=== PATIENT | male | born 1985 | race African-American/Black ===

== ENCOUNTER 2018-01-12 14:07 | Inpatient (IN) | payer OTHER ==
[2018-01-12 14:28] VITALS: BMI 18.4
[2018-01-12] MEDS ORDERED: PNEUMOC 13-VAL CONJ-DIP CRM/PF 0.5 ML DISP.SYRIN IM ONE (16:29)
--- NOTE | 2018-01-12 17:05 | HP ---
"CIWA Score Nausea/Vomitin-Mild Nausea/No Vomiting Muscle Tremors: 4-Moderate,w/Arms Extend Anxiety: 3 Agitation: 2 Paroxysmal Sweats: 1-Minimal Palms Moist Orientation: 0-Oriented Tacttile Disturbances: 0-None Auditory Disturbances: 0-None Visual Disturbances: 0-None Headache: 2-Mild CIWA-Ar Total Score: 13 - Admission Criteria OASAS Guidelines: Admission for Medically Managed Detox: Requires at least one of the followin. CIWA greater than 12 2. Seizures within the past 24 hours 3. Delirium tremens within the past 24 hours 4. Hallucinations within the past 24 hours 5. Acute intervention needed for co occurring medical disorder 6. Acute intervention needed for co occurring psychiatric disorder 7. Severe withdrawal that cannot be handled at a lower level of care (continued vomiting, continued diarrhea, abnormal vital signs) requiring intravenous medication and/or fluids 8. Patient presents the following: CIWA greater than 12 Admission Criteria Met: Admission criteria met Admission ROS [facility] Chief Complaint: Here for alcohol withdrawal. Allergies/Adverse Reactions: Allergies Allergy/AdvReac Type Severity Reaction Status Date / Time No Known Allergies Allergy Verified 01/12/18 16:30 History of Present Illness: Here for alcohol detox. Alcohol use began at age 15. Denies hx seizures. States no blackouts in years. Marijuana use began at age 12. Nicotine use began at age 13. PCP use began at age 20. States last use 1 week ago. Longest length of sobriety 1 month. Has received Naltrexone, while at [place], and is interested in restarting. Denies significant PMH. Search Terms: [employer], 1985 Search Date: 01/12/2018 05:03:22 PM The Drug Utilization Report below displays all of the controlled substance prescriptions, if any, that your patient has filled in the last twelve months. The information displayed on this report is compiled from pharmacy submissions to the Department, and accurately reflects the information as submitted by the pharmacies. This report was requested by: Blanca Quinteros | Reference #: [id number] There are no results for the search terms that you entered. Exam Limitations: No Limitations - Ebola screening Have you traveled outside of the country in the last 21 days: No Have you had contact with anyone from an Ebola affected area: No Have you been sick,other than usual withdrawal symptoms: No Do you have a fever: No - Review of Systems Constitutional: Chills, Changes in sleep (Difficulty falling asleep) EENT: reports: Blurred Vision (States needs glasses), Dental Problems (Missing a few teeth and has caries. Has a dental appt 01/16. Chews and swallows ok) Respiratory: reports: No Symptoms reported Cardiac: reports: No Symptoms Reported GI: reports: Nausea (r/t withdrawal) : reports: No Symptoms Reported Musculoskeletal: reports: No Symptoms Reported Integumentary: reports: Other (Cut (L) cheek x 1 month ago. Rcv'd stitches but scratched out) Neuro: reports: Headache (r/t withdrawal), Tremors Endocrine: reports: No Symptoms Reported Hematology: reports: No Symptoms Reported Psychiatric: reports: Orientated x3, Agitated, Anxious, Depressed (Denies thoughts of harming self or others) Patient History - Patient Medical History Hx Anemia: No Hx Asthma: No Hx Chronic Obstructive Pulmonary Disease (COPD): No Hx Cancer: No Hx Cardiac Disorders: No Hx Congestive Heart Failure: No Hx Hypertension: No Hx Hypercholesterolemia: No Hx Pacemaker: No HX Cerebrovascular Accident: No Hx Seizures: No Hx Diabetes: No Hx Gastrointestinal Disorders: No Hx Genitourinary Disorders: No Hx Sexually Transmitted Disorders: No Hx Renal Disease (ESRD): No Hx Thyroid Disease: No Hx Human Immunodeficiency Virus (HIV): No (Negative 2018) Hx Hepatitis C: No Hx Depression: Yes (Denies thoughts of harming self or others) Hx Suicide Attempt: No Hx Schizophrenia: Yes - Patient Surgical History Past Surgical History: No Hx Neurologic Surgery: No Hx Cataract Extraction: No Hx Cardiac Surgery: No Hx Lung Surgery: No Hx Breast Surgery: No Hx Breast Biopsy: No Hx Abdominal Surgery: No Hx Appendectomy: No Hx Cholecystectomy: No Hx Genitourinary Surgery: No Hx Section: No Hx Orthopedic Surgery: Yes (Hx Scoliosis - metal caden in back 01/2002) Anesthesia Reaction: Yes - PPD History Previous Implant?: Yes Documented Results: Negative w/o proof Implanted On Prior R Admission?: No PPD to be Administered?: Yes - Reproductive History Patient is a Female of Child Bearing Age (11 -55 yrs old): No - Smoking Cessation Smoking history: Current every day smoker Have you smoked in the past 12 months: Yes Aproximately how many cigarettes per day: 20 Cigars Per Day: 0 Hx Chewing Tobacco Use: Yes (Stopped at age 23) Initiated information on smoking cessation: Yes 'Breaking Loose' booklet given: 01/12/18 - Substance & Tx. History Hx Alcohol Use: Yes Hx Substance Use: Yes Substance Use Type: Alcohol, Marijuana, Tranquilizers (PCP) Hx Substance Use Treatment: Yes (detox, ) - Substances Abused Alcohol Route: Oral Frequency: Daily Amount used: 1 LITER, VODKA,ENG Age of first use: 15 Date of Last Use: 01/12/18 Marijuana/Hashish Route: Smoking Frequency: Daily Amount used: 2 BLUNTS Age of first use: 12 Date of Last Use: 01/11/18 Admission Physical Exam S - Vital Signs Vital Signs: Vital Signs - 24 hr 01/12/18 01/12/18 14:25 16:22 Temperature 98.2 F 98.2 F Pulse Rate 94 H 94 H Respiratory 18 18 Rate Blood Pressure 144/89 144/89 - Physical General Appearance: Yes: Mild Distress, Tremorous, Sweating, Anxious HEENTM: Yes: Hearing grossly Normal, Normocephalic, GLENYS, Pharynx Normal, Other (Jerking movements of eyes on lateral gaze) Respiratory: Yes: Lungs Clear, Normal Breath Sounds, No Respiratory Distress Neck: Yes: No masses,lesions,Nodules, Supple Breast: Yes: Breast Exam Deferred Cardiology: Yes: Regular Rhythm, S1, S2, Tachycardia (HR: 102) Abdominal: Yes: Flat, Soft, Increased Bowel Sounds, Tenderness (Mid quad tenderness upon palpation. No guarding. No rebound tenderness.) Genitourinary: Yes: Within Normal Limits Back: Yes: Normal Inspection, Surgical Scar (Throracic) Musculoskeletal: Yes: full range of Motion (Except for middle finger of (L) hand.), Gait Steady Extremities: Yes: Normal Capillary Refill, Non-Tender, Tremors (Upon elevation of arms) Neurological: Yes: mail clerks supervisor II-XII NML intact (Jerking movements of eyes on lateral gaze), Motor Strength 5/5, Other Integumentary: Yes: Normal Color, Dry, Warm, Other (Healing non-approximated laceration w/ red granulation tissue at (L) cheek w/o drainiage.) Lymphatic: Yes: Within Normal Limits - Diagnostic (1) Cannabis abuse, uncomplicated Current Visit: Yes Status: Chronic (2) Alcohol dependence with uncomplicated withdrawal Current Visit: Yes Status: Acute (3) Superficial laceration of face Current Visit: Yes Status: Chronic Comment: (L) cheek area x 1 month. (4) Nystagmus Current Visit: Yes Status: Acute (5) History of open reduction and internal fixation (ORIF) procedure Current Visit: Yes Status: Chronic Comment: Spine for Scoliosis (6) Nicotine dependence, uncomplicated Current Visit: Yes Status: Chronic Qualifiers: Nicotine product type: cigarettes Qualified Code(s): F17.210 - Nicotine dependence, cigarettes, uncomplicated Cleared for Admission [facility] - Detox or Rehab [facility] Level of Care: Medically Managed Detox Regimen/Protocol: Librium [facility] Breath Alcohol Content Breath Alcohol Content: 0.024 Urine Drug Screen - Results Drug Screen Negative: No Urine Drug Screen Results: THC-Marijuana"
[2018-01-12] MEDS ORDERED: IBUPROFEN 400 MG TABLET (FP) PO PRN (18:56)
[2018-01-12] MEDS ORDERED: MENTHOL/PHENOL 1 EACH UD MM PRN (18:56)
[2018-01-12] MEDS ORDERED: chlordiazePOXIDE HCL 25 MG CAPSULE PO ONE (18:56)
[2018-01-12] MEDS ORDERED: MAG HYDROX/AL HYDROX/SIMETH 30 ML UNIT-DOSE CUP PO PRN (18:56)
[2018-01-12] MEDS ORDERED: ACETAMINOPHEN 325 MG TABLET (FP) PO PRN (18:56)
[2018-01-12] MEDS ORDERED: MAGNESIUM CITRATE 300 ML BOTTLE PO PRN (18:56)
[2018-01-12] MEDS ORDERED: LOPERAMIDE HCL 2 MG CAPSULE PO PRN (18:56)
[2018-01-12] MEDS ORDERED: chlordiazePOXIDE HCL 25 MG CAPSULE PO PRN (18:56)
[2018-01-12] MEDS ORDERED: MAGNESIUM HYDROX 2400MG/30ML ORAL SUSPENSION 30 ML CUP PO PRN (18:56)
[2018-01-12] MEDS ORDERED: MELATONIN 5 MG TABLETS PO PRN (22:00)
[2018-01-12] MEDS: BACITRACIN 0.9 GM PACKET TP SCH (22:18)
[2018-01-12] MEDS: THIAMINE HCL 100 MG TABLET (FP) PO SCH (22:18)
[2018-01-12] MEDS: chlordiazePOXIDE HCL 25 MG CAPSULE PO SCH (22:19)
[2018-01-12] MEDS: NICOTINE POLACRILEX 2 MG GUM BUC PRN (22:22)
[2018-01-13 03:27] LABS: URINE APPEARANCE CLEAR; URINE BILIRUBIN NEGATIVE (<2.0 mg/dL); URINE COLOR COLORLESS; URINE GLUCOSE (UA) NEGATIVE (NEGATIVE); URINE KETONE NEGATIVE (NEGATIVE); URINE LEUK ESTERASE NEGATIVE (NEGATIVE); URINE NITRITE NEGATIVE (NEGATIVE); URINE PROTEIN NEGATIVE (NEGATIVE); URINE UROBILINOGEN NEGATIVE mg/dL (0.2-1.0)
[2018-01-13] MEDS: chlordiazePOXIDE HCL 25 MG CAPSULE PO SCH ×4 (05:40→22:18)
[2018-01-13 09:47] LABS: ALBUMIN 3.3 g/dl (3.4-5.0); ALK PHOS 121 U/L (45-117); ANION GAP 7 MMOL/L (8-16); BILIRUBIN,TOTAL 0.6 mg/dL (0.2-1); BLOOD UREA NITROGEN 9 mg/dL (7-18); CALCIUM 8.8 mg/dL (8.5-10.1); CHLORIDE 106 mmol/L (98-107); CO2 29 mmol/L (21-32); CREATININE 0.5 mg/dL (0.55-1.3); GLUCOSE,RANDOM 110 mg/dL (74-106); POTASSIUM 3.8 mmol/L (3.5-5.1); SGOT/AST 17 U/L (15-37); SGPT/ALT 39 U/L (13-61); SODIUM 141 mmol/L (136-145); TOT PROT 6.3 g/dl (6.4-8.2)
[2018-01-13 09:54] LABS: HEMOGLOBIN 13.4 GM/dL (11.7-16.9); MCH 28.3 pg (25.7-33.7); MCHC 32.7 g/dl (32.0-35.9); MEAN CELL VOLUME 86.6 fl (80-96); MEAN PLT VOLUME 8.5 fl (7.5-11.1); PLATELET COUNT 228 K/MM3 (134-434); RBC 4.73 M/mm3 (4.00-5.60); RDW 14.5 % (11.9-15.9); WHITE BLOOD COUNT 4.9 K/mm3 (4.0-10.0)
[2018-01-13] MEDS: BACITRACIN 0.9 GM PACKET TP SCH ×2 (10:02→22:18)
[2018-01-13] MEDS: PRENATAL VITAMINS W/ FOLIC ACID TABLET (FP) PO SCH (10:02)
[2018-01-13] MEDS: NICOTINE 21 MG/24 HOURS TOPICAL PATCH TD SCH (10:05)
[2018-01-13] MEDS: NICOTINE POLACRILEX 2 MG GUM BUC PRN ×3 (10:05→22:19)
--- NOTE | 2018-01-13 11:14 | CONSULT ---
[facility] Psychiatric Consult - Data Date of interview: 01/13/18 Admission source: [facility] Identifying data: Patient is a 32 year old single male, without children, unemployed, homeless, and is supported by [facility]. This is patient's first admission to detox at [facility]. Patient admitted to for alcohol and marijuana dependence. Substance Abuse History: Smoking Cessation. Smoking history: Current every day smoker. Have you smoked in the past 12 months: Yes. Aproximately how many cigarettes per day: 20. Cigars Per Day: 0. Hx Chewing Tobacco Use: Yes ( Stopped at age 23). Initiated information on smoking cessation: Yes. ' Breaking Loose' booklet given: 01/12/18. - Substance & Tx. History. Hx Alcohol Use: Yes. Hx Substance Use: Yes. Substance Use Type: Alcohol, Marijuana, Tranquilizers (PCP). Hx Substance Use Treatment: Yes (detox, ). - Substances Abused. Alcohol. Route: Oral. Frequency: Daily. Amount used: 1 LITER, VODKA,ENG. Age of first use: 15. Date of Last Use: 01/12/18. Marijuana/Hashish. Route: Smoking. Frequency: Daily. Amount used: 2 BLUNTS. Age of first use: 12. Date of Last Use: 01/11/18 Medical History: Hx Scoliosis - metal caden in back 01/2002 Psychiatric History: Patient denies h/o psychiatric hospitalizations but does report one admission to the psychiatric emergency room (2014) in [facility] after stating he wanted to hurt himself while he was intoxicated. He was discharged the following day. He reports being diagnosed wit ADD and schizophrenia as a teenager. States he was prescribed ritalin and risperdal. He denies h/o outpatient care as an adult. No psychosis noted. Patient denies h/o suicide attempt. Physical/Sexual Abuse/Trauma History: denies. Mental Status Exam - Mental Status Exam Alert and Oriented to: Time, Place, Person Cognitive Function: Good Patient Appearance: Well Groomed Mood: Euthymic Affect: Mood Congruent Patient Behavior: Appropriate, Cooperative Speech Pattern: Appropriate Voice Loudness: Normal Thought Process: Intact, Goal Oriented Thought Disorder: Not Present Hallucinations: Denies Suicidal Ideation: Denies Homicidal Ideation: Denies Insight/Judgement: Poor Sleep: Poorly Appetite: Fair Muscle strength/Tone: Normal Gait/Station: Normal Psychiatric Findings - Problem List ([place] 1, 2,3) (1) ADD (attention deficit disorder) Current Visit: No Status: Chronic (2) Alcohol dependence with uncomplicated withdrawal Current Visit: Yes Status: Acute (3) Cannabis abuse, uncomplicated Current Visit: Yes Status: Chronic - Initial Treatment Plan Initial Treatment Plan: Psychoeducation provided. Detoxification in progress. Observation.
--- NOTE | 2018-01-13 11:41 | PN ---
S CIWA - CIWA Score Nausea/Vomitin-Mild Nausea/No Vomiting Muscle Tremors: 3 Anxiety: 2 Agitation: 2 Paroxysmal Sweats: 1-Minimal Palms Moist Orientation: 1-Uncertain about Date Tacttile Disturbances: 1-Very Mild Itch/Numbness Auditory Disturbances: 0-None Visual Disturbances: 0-None Headache: 1-Very Mild CIWA-Ar Total Score: 12 [facility] Progress Note (SOAP) Subjective: sweat tremor anxiety restlessness trouble sleep at night Objective: 01/13/18 11:40 Vital Signs Temperature 97.4 F L 01/13/18 09:10 Pulse Rate 113 H 01/13/18 09:10 Respiratory Rate 18 01/13/18 09:10 Blood Pressure 135/93 01/13/18 09:10 O2 Sat by Pulse Oximetry (%) Laboratory Last Values WBC 4.9 K/mm3 (4.0-10.0) 01/13/18 07:00 RBC 4.73 M/mm3 (4.00-5.60) 01/13/18 07:00 Hgb 13.4 GM/dL (11.7-16.9) 01/13/18 07:00 Hct 41.0 % (35.4-49) 01/13/18 07:00 MCV 86.6 fl (80-96) 01/13/18 07:00 MCH 28.3 pg (25.7-33.7) 01/13/18 07:00 MCHC 32.7 g/dl (32.0-35.9) 01/13/18 07:00 RDW 14.5 % (11.9-15.9) 01/13/18 07:00 Plt Count 228 K/MM3 (134-434) 01/13/18 07:00 MPV 8.5 fl (7.5-11.1) 01/13/18 07:00 Sodium 141 mmol/L (136-145) 01/13/18 07:00 Potassium 3.8 mmol/L (3.5-5.1) 01/13/18 07:00 Chloride 106 mmol/L (98-107) 01/13/18 07:00 Carbon Dioxide 29 mmol/L (21-32) 01/13/18 07:00 Anion Gap 7 MMOL/L (8-16) L 01/13/18 07:00 BUN 9 mg/dL (7-18) 01/13/18 07:00 Creatinine 0.5 mg/dL (0.55-1.3) L 01/13/18 07:00 Creat Clearance w eGFR > 60 (>60) 01/13/18 07:00 Random Glucose 110 mg/dL (74-106) H 01/13/18 07:00 Calcium 8.8 mg/dL (8.5-10.1) 01/13/18 07:00 Total Bilirubin 0.6 mg/dL (0.2-1) 01/13/18 07:00 AST 17 U/L (15-37) 01/13/18 07:00 ALT 39 U/L (13-61) 01/13/18 07:00 Alkaline Phosphatase 121 U/L (45-117) H 01/13/18 07:00 Total Protein 6.3 g/dl (6.4-8.2) L 01/13/18 07:00 Albumin 3.3 g/dl (3.4-5.0) L 01/13/18 07:00 Urine Color Colorless 01/12/18 21:40 Urine Appearance Clear 01/12/18 21:40 Urine pH 6.0 (5.0-8.0) 01/12/18 21:40 Ur Specific [place] 1.004 (1.010-1.035) L 01/12/18 21:40 Urine Protein Negative (NEGATIVE) 01/12/18 21:40 Urine Glucose (UA) Negative (NEGATIVE) 01/12/18 21:40 Urine Ketones Negative (NEGATIVE) 01/12/18 21:40 Urine Blood Negative (NEGATIVE) 01/12/18 21:40 Urine Nitrite Negative (NEGATIVE) 01/12/18 21:40 Urine Bilirubin Negative (<2.0 mg/dL) 01/12/18 21:40 Urine Urobilinogen Negative mg/dL (0.2-1.0) 01/12/18 21:40 Ur Leukocyte Esterase Negative (NEGATIVE) 01/12/18 21:40 RPR Titer Nonreactive (NONREACTIVE) 01/13/18 07:00 lab noted Assessment: 01/13/18 11:41 withdrawal sx Plan: continue detox
[2018-01-13] MEDS ORDERED: PNEUMOCOCCAL 23 VACCINE 0.5 ML VIAL IM ONE (12:00)
[2018-01-13] MEDS ORDERED: PNEUMOC 13-VAL CONJ-DIP CRM/PF 0.5 ML DISP.SYRIN IM ONE (12:17)
--- NOTE | 2018-01-13 16:15 | EKG ---
Test Reason : Blood Pressure : / mmHG Vent. Rate : 090 BPM Atrial Rate : 090 BPM P-R Int : 182 ms QRS Dur : 086 ms QT Int : 356 ms P-R-T Axes : 064 060 065 degrees QTc Int : 435 ms NORMAL SINUS RHYTHM NORMAL ECG NO PREVIOUS ECGS AVAILABLE Confirmed by MD Libertad, Vern ([id number] on 01/13/2018 4:14:31 PM Referred By: Confirmed By:Vern Maurer MD
[2018-01-13] MEDS: THIAMINE HCL 100 MG TABLET (FP) PO SCH (22:17)
[2018-01-14] MEDS: chlordiazePOXIDE HCL 25 MG CAPSULE PO SCH ×3 (05:38→17:26)
[2018-01-14] MEDS: NICOTINE POLACRILEX 2 MG GUM BUC PRN ×5 (05:40→22:12)
[2018-01-14] MEDS ORDERED: COLLOIDAL OATMEAL 1 BAR EACH TP PRN (09:34)
[2018-01-14] MEDS: BACITRACIN 0.9 GM PACKET TP SCH ×2 (10:13→22:09)
[2018-01-14] MEDS: NICOTINE 21 MG/24 HOURS TOPICAL PATCH TD SCH (10:13)
[2018-01-14] MEDS: PRENATAL VITAMINS W/ FOLIC ACID TABLET (FP) PO SCH (10:13)
--- NOTE | 2018-01-14 11:11 | PN ---
S CIWA - CIWA Score Nausea/Vomitin-No Nausea/No Vomiting Muscle Tremors: None Anxiety: 0-No Anxiety, at Ease Agitation: 0-Normal Activity Paroxysmal Sweats: No Perspiration Orientation: 0-Oriented Tacttile Disturbances: 0-None Auditory Disturbances: 0-None Visual Disturbances: 0-None Headache: 0-None Present CIWA-Ar Total Score: 0 BHS Progress Note (SOAP) Subjective: pt states feeling fine, would like to leave on Friday- in 2 days, pt would be getting 10mg doses of Librium of Friday O Vital Signs - 24 hr 01/13/18 01/13/18 01/13/18 14:17 17:24 22:16 Temperature 96.8 F L 98.1 F 97.5 F L Pulse Rate 95 H 88 81 Respiratory 18 16 18 Rate Blood Pressure 149/94 134/66 127/78 01/14/18 01/14/18 01/14/18 00:30 03:30 06:00 Temperature 96.8 F L Pulse Rate 85 Respiratory 18 18 16 Rate Blood Pressure 131/83 01/14/18 09:59 Temperature 97.0 F L Pulse Rate 98 H Respiratory 16 Rate Blood Pressure 137/78 Laboratory Tests 01/12/18 01/13/18 01/13/18 21:40 07:00 07:00 WBC 4.9 RBC 4.73 Hgb 13.4 Hct 41.0 MCV 86.6 MCH 28.3 MCHC 32.7 RDW 14.5 Plt Count 228 MPV 8.5 Sodium 141 Potassium 3.8 Chloride 106 Carbon Dioxide 29 Anion Gap 7 L BUN 9 Creatinine 0.5 L Creat Clearance w eGFR > 60 Random Glucose 110 H Calcium 8.8 Total Bilirubin 0.6 AST 17 ALT 39 Alkaline Phosphatase 121 H Total Protein 6.3 L Albumin 3.3 L Urine Color Colorless Urine Appearance Clear Urine pH 6.0 Ur Specific [place] 1.004 L Urine Protein Negative Urine Glucose (UA) Negative Urine Ketones Negative Urine Blood Negative Urine Nitrite Negative Urine Bilirubin Negative Urine Urobilinogen Negative Ur Leukocyte Esterase Negative RPR Titer 01/13/18 07:00 WBC RBC Hgb Hct MCV MCH MCHC RDW Plt Count MPV Sodium Potassium Chloride Carbon Dioxide Anion Gap BUN Creatinine Creat Clearance w eGFR Random Glucose Calcium Total Bilirubin AST ALT Alkaline Phosphatase Total Protein Albumin Urine Color Urine Appearance Urine pH Ur Specific [place] Urine Protein Urine Glucose (UA) Urine Ketones Urine Blood Urine Nitrite Urine Bilirubin Urine Urobilinogen Ur Leukocyte Esterase RPR Titer Nonreactive labs WNL, VS WNL a/p: alcohol use disorder-pt doing well on librium detox protocol.
[2018-01-14] MEDS: THIAMINE HCL 100 MG TABLET (FP) PO SCH (22:08)
[2018-01-14] MEDS: chlordiazePOXIDE 5 MG CAPSULE PO SCH (22:09)
--- NOTE | 2018-01-14 22:30 | PN ---
B[facility] Progress Note Note: PPD (+) Denies cough, night sweats, fever. Will order CXR
[2018-01-15] MEDS: chlordiazePOXIDE 5 MG CAPSULE PO SCH ×3 (05:48→18:05)
[2018-01-15] MEDS: NICOTINE POLACRILEX 2 MG GUM BUC PRN ×4 (05:50→22:28)
[2018-01-15] MEDS: BACITRACIN 0.9 GM PACKET TP SCH (10:51)
[2018-01-15] MEDS: PRENATAL VITAMINS W/ FOLIC ACID TABLET (FP) PO SCH (10:51)
[2018-01-15] MEDS: NICOTINE 21 MG/24 HOURS TOPICAL PATCH TD SCH (10:52)
--- NOTE | 2018-01-15 15:15 | PN ---
[facility] Progress Note (SOAP) Subjective: Patient denies any current withdrawal symptoms and reports that he feels well overall. Objective: PATIENT A & O X 2 (UNCERTAIN ABOUT CURRENT DAY / DATE). PATIENT OBSERVED AMBULATING ON UNIT. NO ACUTE DISTRESS. 01/15/18 15:13 Vital Signs Temperature 97.9 F 01/15/18 13:27 Pulse Rate 102 H 01/15/18 13:27 Respiratory Rate 18 01/15/18 13:27 Blood Pressure 150/86 01/15/18 13:27 O2 Sat by Pulse Oximetry (%) Laboratory Tests 01/12/18 01/13/18 01/13/18 21:40 07:00 07:00 WBC 4.9 RBC 4.73 Hgb 13.4 Hct 41.0 MCV 86.6 MCH 28.3 MCHC 32.7 RDW 14.5 Plt Count 228 MPV 8.5 Sodium 141 Potassium 3.8 Chloride 106 Carbon Dioxide 29 Anion Gap 7 L BUN 9 Creatinine 0.5 L Creat Clearance w eGFR > 60 Random Glucose 110 H Calcium 8.8 Total Bilirubin 0.6 AST 17 ALT 39 Alkaline Phosphatase 121 H Total Protein 6.3 L Albumin 3.3 L Urine Color Colorless Urine Appearance Clear Urine pH 6.0 Ur Specific [place] 1.004 L Urine Protein Negative Urine Glucose (UA) Negative Urine Ketones Negative Urine Blood Negative Urine Nitrite Negative Urine Bilirubin Negative Urine Urobilinogen Negative Ur Leukocyte Esterase Negative RPR Titer 01/13/18 07:00 WBC RBC Hgb Hct MCV MCH MCHC RDW Plt Count MPV Sodium Potassium Chloride Carbon Dioxide Anion Gap BUN Creatinine Creat Clearance w eGFR Random Glucose Calcium Total Bilirubin AST ALT Alkaline Phosphatase Total Protein Albumin Urine Color Urine Appearance Urine pH Ur Specific [place] Urine Protein Urine Glucose (UA) Urine Ketones Urine Blood Urine Nitrite Urine Bilirubin Urine Urobilinogen Ur Leukocyte Esterase RPR Titer Nonreactive LABS NOTED. Assessment: 01/15/18 15:14 WITHDRAWAL SYMPTOMS. Plan: CONTINUE DETOX. INCREASE DAILY PO FLUID INTAKE. PATIENT SCHEDULED FOR D/C TOMORROW.
[2018-01-15] MEDS: chlordiazePOXIDE HCL 10 MG CAPSULE PO SCH (22:27)
[2018-01-15] MEDS: THIAMINE HCL 100 MG TABLET (FP) PO SCH (22:27)
[2018-01-16] MEDS: chlordiazePOXIDE HCL 10 MG CAPSULE PO SCH (05:52)
[2018-01-16] MEDS: NICOTINE POLACRILEX 2 MG GUM BUC PRN (05:53)
[2018-01-16 08:51] VITALS: BP 121/65; PULSE 94; TEMP 97.5
--- NOTE | 2018-01-16 10:09 | DS ---
[facility] Detox Discharge Summary Admission Date: 01/12/18 Discharge Date: 01/16/18 - History Present History: Alcohol Dependence, Cannabis Dependence - Physical Exam Results Vital Signs: Vital Signs Temperature 97.5 F L 01/16/18 08:49 Pulse Rate 94 H 01/16/18 08:49 Respiratory Rate 20 01/16/18 08:49 Blood Pressure 121/65 01/16/18 08:49 O2 Sat by Pulse Oximetry (%) - Treatment Hospital Course: Detox Protocol Followed, Detoxed Safely, Responded well, Discharged Condition Good, Rehab Referral Accepted - Medication Discharge Medications: Ambulatory Orders NK [No Known Home Medication] 01/12/18 - Diagnosis (1) Alcohol dependence with uncomplicated withdrawal Status: Chronic (2) Nystagmus Status: Chronic (3) ADD (attention deficit disorder) Status: Chronic (4) Cannabis abuse, uncomplicated Status: Chronic (5) History of open reduction and internal fixation (ORIF) procedure Status: Chronic (6) Nicotine dependence, uncomplicated Status: Chronic Qualifiers: Nicotine product type: cigarettes Qualified Code(s): F17.210 - Nicotine dependence, cigarettes, uncomplicated (7) Superficial laceration of face Status: Chronic - AMA Did Patient Leave Against Medical Advice: No (going home. decline referral)
== END 2018-01-16 08:35 | disposition home or self-care (01) | DRG 775 ==
LOC: YASAS 14:07 → Y6N 17:39
PROC: HZ2ZZZZ Detoxification Services for Substance Abuse Treatment (ICD-10-PCS; principal; 2018-01-12)
DX: F10.230 Alcohol dependence with withdrawal, uncomplicated (principal); F12.10 Cannabis abuse, uncomplicated; F17.210 Nicotine dependence, cigarettes, uncomplicated; F98.8 Other specified behavioral and emotional disorders with onset usually occurring in childhood and adolescence; F32.9 Major depressive disorder, single episode, unspecified; H55.00 Unspecified nystagmus; R76.11 Nonspecific reaction to tuberculin skin test without active tuberculosis; Z59.0 Homelessness
CPT/HCPCS: 36415; 71046-TC-FY; 80053; 81003; 85027; 86593; 90732; 93005; 93010; G0009